=== PATIENT | male | born 1985 | race Caucasian/White ===

== ENCOUNTER 2017-01-22 16:30 | Emergency (ER) | payer MEDICAID, OTHER ==
[~2017-01-22] VITALS: Ht 188 cm; Wt 113.4 kg
[~2017-01-22 16:30] MED LIST: CYMB1CAP PO; DICL75TA PO; FLEX10TA2 PO; IBUP200T2 PO; PERC7.5T12 PO; TIZA2CAP3 PO; VICO7.5T PO; VOLT1GEL2 TD
[2017-01-22 16:31] VITALS: BP 117/66
[2017-01-22] MEDS ORDERED: LIDOCAINE 1% MDV 20ML VIAL SC ONE (17:15)
[2017-01-22] MEDS ORDERED: KEFL500C7 PO (17:59)
[2017-01-22] MEDS ORDERED: CEPHALEXIN 500 MG CAP PO ONE (18:00)
== END 2017-01-22 18:17 | disposition home or self-care (01) ==
LOC: M ED 17:32
DX: S61.210A Laceration without foreign body of right index finger without damage to nail, initial encounter (principal); W26.8XXA Contact with other sharp object(s), not elsewhere classified, initial encounter; Y92.89 Other specified places as the place of occurrence of the external cause; Y93.89 Activity, other specified; Y99.0 Civilian activity done for income or pay; F17.210 Nicotine dependence, cigarettes, uncomplicated

== ENCOUNTER 2017-03-19 11:14 | Inpatient (IN) | payer MEDICAID, OTHER, SELFPAY ==
[~2017-03-19] VITALS: Ht 188 cm; Wt 103.5 kg
[~2017-03-19 11:14] MED LIST changes: +KEFL500C17 PO
[2017-03-19 12:26] LABS: MEAN CORPUSCULAR HGB CONC 34.8 g/dl (32.0-36.5); MEAN CORPUSCULAR VOLUME 83.1 fl (80.0-96.0); RED CELL DISTRIBUTION WIDTH 13.3 % (11.5-14.5); WHITE BLOOD COUNT 13.2 K/mm3 (4.0-10.0)
[2017-03-19 12:50] LABS: ALBUMIN 4.5 GM/DL (3.2-5.2); ALBUMIN/GLOBULIN RATIO 1.61 (1.00-1.93); ALKALINE PHOSPHATASE 72 U/L (45-117); ALT/SGPT 31 U/L (12-78); ANION GAP 10 MEQ/L (8-16); AST/SGOT 21 U/L (15-37); BILIRUBIN,DIRECT 0.4 MG/DL (0.0-0.2); BILIRUBIN,TOTAL 1.9 MG/DL (0.2-1.0); BLOOD UREA NITROGEN 31 MG/DL (7-18); CALCIUM LEVEL 9.4 MG/DL (8.5-10.1); CARBON DIOXIDE LEVEL 22 MEQ/L (21-32); CHLORIDE LEVEL 107 MEQ/L (98-107); CREATININE FOR GFR 1.46 MG/DL (0.70-1.30); GLOMERULAR FILTRATION RATE > 60.0 (>60); GLUCOSE, FASTING 82 MG/DL (70-105); SODIUM LEVEL 139 MEQ/L (136-145); TOTAL PROTEIN 7.3 GM/DL (6.4-8.2)
[2017-03-19 14:44] LABS: METHADONE URINE NEGATIVE (NEGATIVE)
[2017-03-19] MEDS ORDERED: MAALOX 30 ML SUSP *UDC PO PRN (18:00)
[2017-03-19] MEDS ORDERED: MOM 30ML SUSPENSION UDC PO PRN (18:00)
[2017-03-19 20:07] VITALS: BP 124/82
[2017-03-19] MEDS ORDERED: OLANZapine ORAL DISINTEGRATING TAB 5MG PO ONE (20:30)
[2017-03-19] MEDS: traZODone 50 MG TAB PO PRN (20:59)
[2017-03-19] MEDS: NICOTINE 21MG/24HR 1 EA TRANSDERMAL TD SCH (21:00)
[2017-03-20 06:00] VITALS: BP 100/51
[2017-03-20] MEDS: NICOTINE 21MG/24HR 1 EA TRANSDERMAL TD SCH ×2 (08:47→17:54)
[2017-03-20 18:00] VITALS: BP 128/79
[2017-03-20] MEDS ORDERED: OLANZapine ORAL DISINTEGRATING TAB 5MG PO ONE (19:45)
[2017-03-20] MEDS: traZODone 50 MG TAB PO PRN (19:49)
--- NOTE | 2017-03-21 01:36 | HPE ---
DATE OF ADMISSION: 03/19/2017 HISTORY OF PRESENT ILLNESS: Please refer to psychiatric history and evaluation for further details on this admission. This examination and history is intended for medical issues, which may need treatment, followup or consult on this 31-year-old male. ALLERGIES: No known allergies. PRIMARY CARE PROVIDER: Dr. Emiliano Banks. SOCIAL HISTORY: He is single. Ethyl alcohol (EtOH) none. Smokes half a pack of cigarettes per day. Recreational drug use: Cocaine and he has also used tramadol that was prescribed to him some time ago. He has taken Xanax that he states was prescribed to him some time ago. PAST MEDICAL HISTORY: Chronic neck and back pain. PAST SURGICAL HISTORY: Negative. HOME MEDICATIONS: None. FAMILY HISTORY: Noncontributory. LABORATORY STUDIES: WBC 15.2, hemoglobin 13.2, hematocrit 43.6, platelets 238. Electrolytes are normal. BUN 31, creatinine 1.6. Total bilirubin 1.9. Direct bilirubin 0.4. Urine was positive for opiates, amphetamines, benzodiazepines, and cocaine. REVIEW OF SYSTEMS: 10-system review was done and other than chronic neck and back pain was unremarkable. PHYSICAL EXAMINATION: 31-year-old cooperative male in no acute distress. Vital signs are stable. Height 74 inches, weight 103.7 kg, body mass index (BMI) 29.4. Blood pressure 124/82, pulse 82, respirations 20, temperature 98.8. The patient is alert and oriented times three. Pupils equal and react to light. Extraocular muscles intact. Cornea and sclerae clear. Conjunctivae were normal. No facial asymmetry. Pharynx, tongue and gums pink and moist. Tongue is midline. Neck is supple without lymphadenopathy. No thyromegaly, no goiter. Chest clear to auscultation without wheeze or retraction. Heart is regular. Abdomen is benign. Bowel sounds positive. Genitourinary/rectal: Not done. Extremities show equal strength, full range of motion. No cyanosis, clubbing or edema. Peripheral pulses equal and palpable bilaterally. Skin is warm and dry. IMPRESSION/PLAN: 1. Psychiatric plan per psychiatry. 2. Chronic neck and back pain. No acute medical issues. Continue followup as outpatient with his primary care provider.
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
[2017-03-21 06:46] VITALS: BP 119/68
[2017-03-21 06:59] LABS: ALBUMIN 3.6 GM/DL (3.2-5.2); ALBUMIN/GLOBULIN RATIO 1.2 (1.00-1.93); BILIRUBIN,DIRECT 0.2 MG/DL (0.0-0.2); BILIRUBIN,TOTAL 0.8 MG/DL (0.2-1.0); TOTAL PROTEIN 6.6 GM/DL (6.4-8.2)
[2017-03-21] MEDS: NICOTINE 21MG/24HR 1 EA TRANSDERMAL TD SCH (09:12)
[2017-03-21 18:00] VITALS: BP 124/66
--- NOTE | 2017-03-21 18:19 | IPN ---
DATE: 03/21/2017 VITAL SIGNS: Temperature 97.0, pulse 58, respirations 16, blood pressure 119/68. CURRENT MEDICATIONS: - trazodone 50 mg nightly as needed HISTORY OF PRESENT ILLNESS: This is a 31-year-old white male who had supposedly texted his girlfriend claiming he was suicidal. Patient's mother reported to police that he was looking for a rope to hang himself. Patient had been using drugs. His urine screen was positive for cocaine, benzodiazepine, opiates, and amphetamine according to staff. Patient is engaged and is living with his fiance who recently broke off the engagement. He reports recently his appetite is good. He denies any sleep issues. His concentration is fine. Level of energy is good. He denies previous history of suicidality. He denies previous psychiatric treatment or hospitalizations. He has had conflict with his mother who wants him to visit his brother who is in a coma at a local [facility]. MENTAL STATUS EXAMINATION: Patient is alert, oriented, and cooperative. Patient appears anxious with some dysphoria but no major depression. He denies being suicidal. He is not homicidal. No current signs of dangerousness. Insight and judgment are fair. He is not psychotic, not hearing voices, no paranoia or thought disorder. No signs of organicity. DIAGNOSES: 1. Adjustment disorder with mixed emotional features. 2. Cocaine use disorder. 3. Opiate use disorder. 4. Sedative use disorder. PLAN: Milieu therapy. Patient does not appear to need psychotropics at this time, but will be monitored closely. Staff to obtain collateral information regarding his prior history. Patient will need referral to a chemical dependency agency.
[2017-03-21] MEDS: traZODone 50 MG TAB PO PRN (21:22)
[2017-03-21] MEDS: ACETAMINOPHEN TAB 650MG DOSE (2X325MG) PO PRN (21:23)
[2017-03-22 06:31] VITALS: BP 116/56
[2017-03-22] MEDS: NICOTINE 21MG/24HR 1 EA TRANSDERMAL TD SCH (08:55)
[2017-03-22] MEDS: hydrOXYzine 50 MG TAB PO PRN (14:47)
[2017-03-22] MEDS: NICOTINE POLACRILEX 2 MG GUM PO PRN ×4 (14:47→20:49)
--- NOTE | 2017-03-22 17:17 | IPN ---
DATE: 03/22/2017 Vital signs: Temperature 97.8, pulse 60, respirations 60, blood pressure 116/56. CURRENT MEDICATIONS: - Trazodone 50 mg at bedtime as needed HISTORY OF PRESENT ILLNESS: Patient reports that his mood is good today. He is attending the groups, he finds them helpful. He likes to socialize with the other young people on the unit. He is watching movies. His appetite is good. He slept well last noted without needed any sleepers. His concentration has been fine. He had no visitors yesterday. His fiance did not visit. He is concerned about this. She was not answering his phone calls. Later in the day after I saw the patient, the patient did have contact with his fiance. She broke off the engagement. This was very upsetting to the patient. Patient reported anxiety and dysphoria to the nursing staff but no suicidal ideation. Patient dislikes the nicotine patch, he requests the Nicorette gum, which is reasonable. Patient continues to ventilate his frustration with his mother whom he claims has had a sabotaging relationship with his fiance/girlfriend. MENTAL STATUS EXAMINATION: Patient is alert, oriented, he is cooperative. Mood and affect appeared recently good. Anxiety was minimal. He was feature oriented. He was not homicidal. No suicidal. Patient nonpsychotic, not hearing voices. No paranoia or thought disorder. Grooming and hygiene is quite good. Insight and judgment appeared fair. No signs of organicity. DIAGNOSES: 1. Adjustment disorder with mixed emotional features. 2. Cocaine use disorder. 3. Opiate use disorder. 4. Sedative use disorder. PLAN: Add Nicorette donna. Add Atarax as needed for anxiety control. Staff to reach out to family members for collateral contact. Support provided. Patient to be monitored for any signs of dangerousness. Patient to be monitored closely.
[2017-03-22 18:00] VITALS: BP 110/64
[2017-03-22] MEDS: traZODone 50 MG TAB PO PRN (20:17)
[2017-03-22] MEDS: ACETAMINOPHEN TAB 650MG DOSE (2X325MG) PO PRN (20:18)
[2017-03-23 07:00] VITALS: BP 98/60
[2017-03-23] MEDS: NICOTINE POLACRILEX 2 MG GUM PO PRN ×6 (08:32→21:00)
[2017-03-23] MEDS: hydrOXYzine 50 MG TAB PO PRN ×3 (13:26→21:51)
[2017-03-23] MEDS: ACETAMINOPHEN TAB 650MG DOSE (2X325MG) PO PRN ×2 (13:26→20:59)
[2017-03-23 18:00] VITALS: BP 124/79
[2017-03-23] MEDS: traZODone 50 MG TAB PO PRN (20:59)
[2017-03-24 06:58] VITALS: BP 129/68
[2017-03-24] MEDS: hydrOXYzine 50 MG TAB PO PRN ×4 (08:07→20:36)
[2017-03-24] MEDS: NICOTINE POLACRILEX 2 MG GUM PO PRN ×4 (08:07→20:36)
[2017-03-24] MEDS: ACETAMINOPHEN TAB 650MG DOSE (2X325MG) PO PRN ×2 (08:08→16:42)
--- NOTE | 2017-03-24 10:49 | IPN ---
DATE: 03/23/2017 VITAL SIGNS: Temperature 98.0, pulse 60, respirations 16, blood pressure 98/60. CURRENT MEDICATIONS: - trazodone 50 mg at bedtime as needed - Atarax 50 mg every 4 hours as needed - Nicorette gum 2 mg every 2 hours as needed HISTORY OF PRESENT ILLNESS: Patient reports is mood to be better today. He was upset yesterday as his fiancee broke up with him and moved out of the apartment. He realizes now that this was not a good relationship, she was not supportive to him, he plans to move back into his mother's house who has been more supportive. He had been in conflict with his mother over excessive visitation with his brother who is in a comma, however, he has worked through many of these conflicted issues with her over the phone. His grandmother has also been visiting and has been supportive. Patient is more future oriented. He is motivated to stay clean and avoid drugs. shutdown planner had contacted the fijagdishe who has confirmed her wish to break off the relationship. MENTAL STATUS EXAMINATION: Patient is alert, oriented and cooperative. Affect is brighter today. Mood is less depressed. He does appear future oriented. He is not homicidal or suicidal today. He is not psychotic. Grooming and hygiene appear good today. Insight and judgment seem much improved. DIAGNOSIS: Adjustment disorder with mixed emotional features. Cocaine use disorder. Opiate use disorder. Sedative use disorder. PLAN: Continue current psychotropics. Staff to reach out to his mother to arrange collateral contact and adequate safe discharge planning. Involve in hospital milieu.
[2017-03-24 18:00] VITALS: BP 115/57
[2017-03-24] MEDS: traZODone 50 MG TAB PO PRN (20:36)
[2017-03-25] MEDS: hydrOXYzine 50 MG TAB PO PRN ×2 (06:31→10:32)
[2017-03-25] MEDS: NICOTINE POLACRILEX 2 MG GUM PO PRN ×2 (06:32→09:25)
[2017-03-25] MEDS: ACETAMINOPHEN TAB 650MG DOSE (2X325MG) PO PRN (06:32)
[2017-03-25 07:34] VITALS: BP 127/64
[2017-03-25] MEDS ORDERED: TRAZO50TA PO (08:07)
[2017-03-25] MEDS ORDERED: HYDRO50TAB PO (08:07)
--- NOTE | 2017-03-25 22:13 | IPN ---
DATE: 03/24/2017 VITAL SIGNS: Temperature 99.1, pulse 69, respirations 18, blood pressure 129/68. CURRENT MEDICATIONS: - Atarax 50 mg every 4 hours as needed - trazodone 50 mg at bedtime as needed HISTORY OF PRESENT ILLNESS: Patient states his mother came into visit last night. She brought him street clothes, which he appreciated. He reports his mood to be much improved. He worked out his areas of conflict with his mother. He realizes now that she is a major support. He plans on moving out of his apartment and back in to live with her. His appetite is fine. He slept well last night. His concentration is good. He is attending all groups. He decided not to go back to the [facility]. He claims that she actually uses methamphetamine and is a bad influence on him. He realized now that the breakup in the relationship was for the best. He is going to attend outpatient mental health and chemical dependency treatment. His mother bought tickets for a musical group tomorrow night, which he hopes to attend with his mother and father. MENTAL STATUS EXAMINATION: Mood and affect appear much improved. Affect appears quite good. Anxiety is minimal. He is more hopeful about the future. Not voicing any homicidal or suicidal thoughts or impulses. No signs of psychosis. Memory and hygiene are, again, quite good today. Insight and judgment remain improved. DIAGNOSES: 1. Adjustment disorder with mixed emotional features. 2. Cocaine use disorder. 3. Opiate use disorder. PLAN: Discharge tomorrow to care of his family. Staff to work on discharge planning. KRISTIN
--- NOTE | 2017-03-26 11:50 | MHDS ---
DATE OF ADMISSION: 03/19/2017 DATE OF DISCHARGE: 03/25/2017 VITAL SIGNS: Temperature 98.2, pulse 72, respirations 18, blood pressure 127/64. LABORATORY: Complete blood count (CBC) and differential normal except for elevated white blood count (WBC) at 13.2. Chemistry within normal limits except for elevated creatine 1.46 and BUN 31. Toxicology positive for opiates, amphetamines, benzodiazepines and cocaine metabolites. DISCHARGE MEDICATIONS: - trazodone 50 mg at bedtime (hs) as needed - Atarax 50 mg every 4 hours as needed CHIEF COMPLAINT: The patient sent a suicidal text to his girlfriend. HISTORY OF PRESENT ILLNESS: This is a 31-year-old white male admitted from the emergency room after the police got a phone call from the patient's mother. The patient's mother was concerned that the patient was looking for a rope. According to the police report, the patient has been using drugs recently. His urine toxicology screen is positive for multiple substances. He minimizes his substance use history. He does have a history of cocaine use and alcohol use disorder and has been in treatment in the past. The patient has had some recent conflict with his [email or web address] avelina, whom he lives with. He has also had conflict with his mother, who demands that he join her visiting his brother [facility] the jail, who is in a coma. PROGRESS ON THE UNIT: The patient was seen initially by Dr. Ramos, then by myself as of March 21, 2017. The patient denies any recent history of depression. Reports his appetite has been good recently. His weight is stable. He reports sleeping well at night. He denies a previous history of suicidal behavior. He denies previous psychiatric treatment or hospitalizations. The patient continued to appear anxious on the unit. Due to his recent conflict with his fianc e and mother, as well as his significant drug use, the patient was given Atarax for control of anxiety symptoms and trazodone for mild insomnia with good affect. The patient's fianc e broke off the engagement during the hospitalization. The patient was initially upset, but then coped with this loss reasonably well. He did not become despondent or suicidal. His mother was in to visit frequently. The patient and his mother worked through their issues of conflict to his satisfaction. The patient decided that he would return home to live with his mother. The patient's mother support this, stating that he always does best when he is under her supervision. The patient states that he does like to exercise. He likes to go to the gym on an almost daily basis. The patient stopped going to the gym once he met his aleena quan, as she liked to drink and green party. He realizes now that she was a bad influence on him. He plans to return to his exercise program regimen. The patient did not require any antidepressants while on the unit. He was willing to followup with outpatient mental health and chemical dependency treatment and appeared to reach maximal hospital benefit. MENTAL STATUS EXAMINATION: At the time of discharge, mood and affect were much improved. Anxiety was minimal. No signs of depression. He was not suicidal or homicidal. Insight and judgment seemed much improved. No signs of psychosis. No hearing voices. No paranoia thought disorder. Memory function is intact. No signs of organicity. ASSESSMENT: The patient's suicidal ideation resolved quickly and the patient worked our various psychosocial issues and appeared ready for outpatient treatment. DISPOSITION/PLAN: Discharge today. Followup with outpatient mental health and chemical dependency treatment. The patient to return home to live with his mother temporarily.
== END 2017-03-25 11:20 | disposition home or self-care (01) | DRG 755 ==
LOC: M ED 11:14 → M ED INP 17:55 → M PSY 19:56
PROVIDERS: ADMIT Psychiatry & Neurology Psychiatry; ATTEND Psychiatry & Neurology Psychiatry
DX: F43.20 Adjustment disorder, unspecified (principal); R45.851 Suicidal ideations; Z79.899 Other long term (current) drug therapy; F14.10 Cocaine abuse, uncomplicated; F11.10 Opioid abuse, uncomplicated; F17.210 Nicotine dependence, cigarettes, uncomplicated; M54.2 Cervicalgia

== ENCOUNTER → 2018-11-28 | Outpatient (REF) | payer OTHER ==
[~2018-11-28] MED LIST changes: +HYDRO50TAB PO; +TIZA2CAP PO; -TIZA2CAP3 PO; +TRAZO50TA PO
[2018-11-28 19:31] LABS: INFLUENZA A AMPLIFICATION NEGATIVE (NEGATIVE); INFLUENZA B AMPLIFICATION NEGATIVE (NEGATIVE)
== END ==
LOC: M LAB REF 18:29
PROVIDERS: ATTEND Physician Assistant Medical
DX: J11.1 Influenza due to unidentified influenza virus with other respiratory manifestations (principal)

== ENCOUNTER → 2018-12-11 | Outpatient (REF) | payer OTHER ==
[2018-12-12 00:05] LABS: CHLAMYDIA DNA AMPLIFICATION NEGATIVE (NEGATIVE); GC DNA AMPLIFICATION NEGATIVE (NEGATIVE)
== END ==
LOC: M LAB REF 10:27
PROVIDERS: ATTEND Physician Assistant
DX: Z11.3 Encounter for screening for infections with a predominantly sexual mode of transmission (principal)

== ENCOUNTER → 2019-04-25 | Outpatient (REF) | payer OTHER ==
[~2019-04-25] MED LIST changes: +BUPRENORP; +GABA-843; +HYDR1TAB33 PO; -HYDRO50TAB PO; +TRAZ1TAB10 PO; -TRAZO50TA PO; +VYVA40CA3
[2019-04-25 17:26] LABS: ALBUMIN 4.1 GM/DL (3.2-5.2); ALT/SGPT 184 U/L (12-78); BASO % 0.4 % (0.0-1.0); BILIRUBIN,TOTAL 0.6 MG/DL (0.2-1.0); BLOOD UREA NITROGEN 22 MG/DL (7-18); CALCIUM LEVEL 9.1 MG/DL (8.5-10.1); CARBON DIOXIDE LEVEL 29 MEQ/L (21-32); CHLORIDE LEVEL 107 MEQ/L (98-107); CHOLESTEROL LEVEL 152 MG/DL (<200); CHOLESTEROL RISK RATIO 3.619 (<5); EOS # 0.1 10^3/uL (0.0-0.50); EOS % 1.5 % (0.0-3.0); FREE T4 1.28 NG/DL (0.76-1.46); GLOMERULAR FILTRATION RATE > 60.0 (>60); GLUCOSE, FASTING 90 MG/DL (70-100); HDL CHOLESTEROL 42 MG/DL (>40); HEMATOCRIT 46.6 % (42.0-52.0); HEMOGLOBIN 16.3 g/dl (13.5-17.5); LDL CHOLESTEROL 96 MG/DL (<100); LYMPH # 1.5 10^3/uL (1.5-4.5); LYMPH % 31.7 % (24.0-44.0); MEAN CORPUSCULAR HEMOGLOBIN 29.8 pg (27.0-33.0); MEAN CORPUSCULAR VOLUME 85.2 fl (80.0-96.0); MONO # 0.4 10^3/uL (0.0-0.8); MONO % 9.2 % (0.0-5.0); NEUTROPHILS # 2.7 10^3/uL (1.8-7.7); NEUTROPHILS % 56.8 % (36.0-66.0); NON-HDL-C 110 MG/DL; PLATELET COUNT, AUTOMATED 194 10^3/uL (150-450); POTASSIUM SERUM 4.6 MEQ/L (3.5-5.1); RED BLOOD COUNT 5.47 10^6/uL (4.30-6.10); SODIUM LEVEL 142 MEQ/L (136-145); TOTAL PROTEIN 6.9 GM/DL (6.4-8.2); TRIGLYCERIDES LEVEL 72 MG/DL (<150); WHITE BLOOD COUNT 4.8 10^3/uL (4.0-10.0)
[2019-04-25 18:03] LABS: HEMOGLOBIN A1c 5.7 %
[2019-04-28 00:07] LABS: Lyme Disease IgG Ab 18 kDa Ban Present (.); Lyme Disease IgG Ab 23 kDa Ban Absent (.); Lyme Disease IgG Ab 28 kDa Ban Absent (.); Lyme Disease IgG Ab 30 kDa Ban Absent (.); Lyme Disease IgG Ab 39 kDa Ban Absent (.); Lyme Disease IgG Ab 41 kDa Ban Absent (.); Lyme Disease IgG Ab 45 kDa Ban Absent (.); Lyme Disease IgG Ab 58 kDa Ban Absent (.); Lyme Disease IgG Ab 66 kDa Ban Absent (.); Lyme Disease IgG Ab 93 kDa Ban Absent (.); Lyme Disease IgG West Blot Int Negative (.); Lyme Disease IgG/IgM Antibodie <0.91 ISR (0.00-0.90); Lyme Disease IgM Ab 23 kDa Ban Present (.); Lyme Disease IgM Ab 39 kDa Ban Absent (.); Lyme Disease IgM Ab 41 kDa Ban Absent (.); Lyme Disease IgM Ab Quantitati 1.07 index (0.00-0.79); Lyme Disease IgM West Blot Int Negative (.)
== END ==
LOC: M LAB REF 16:44
PROVIDERS: ATTEND Family Medicine
DX: Z13.228 Encounter for screening for other metabolic disorders (principal)

== ENCOUNTER → 2019-05-04 | Outpatient (CLI) | payer OTHER ==
--- NOTE | 2019-05-04 09:23 | REP ---
Free abdomen ultrasound for upper abdominal pain: There is no cholelithiasis, gallbladder wall thickening or pericholecystic fluid. There is no intrahepatic or extrahepatic biliary duct dilatation. The common biliary duct measures 5.4 mm in diameter. The hepatic parenchyma is homogeneous and otherwise unremarkable. The visualized hepatic parenchyma is unremarkable. The spleen is mildly enlarged measuring 15.7 x 5.5 x 11 point centimeters for splenic index of 189. There are no focal splenic masses or cysts. The right kidney measures 11.2 x 5.9 x 4.2 cm. The left kidney measures 12.2 x 6.7 x 5.7 cm. The kidneys are normal size. There is a the 0.9 cm right renal Bosniak type 1 cyst. No left renal cyst. There are no solid renal masses on the right on the left. There are no renal calculi on the right on the left. There is no hydronephrosis on the right on the left. There is no abdominal aortic aneurysm. The abdominal aortic measurements: Proximal 2.3 cm. Mid to 0.4 cm. Distal 1.9 cm. There is no ascites. Impression: There is a 0.90 cm right renal Bosniak type 1 cyst. Mild splenomegaly. No splenic masses or cysts. Portions of the pancreas are obscured. Electronically Signed by Gabriel Vazquez MD 05/04/2019 09:14 A
== END ==
LOC: M RAD 07:57
PROVIDERS: ATTEND Family Medicine
DX: R10.10 Upper abdominal pain, unspecified (principal); N28.1 Cyst of kidney, acquired

== ENCOUNTER → 2019-05-29 | Outpatient (CLI) | payer OTHER ==
[~2019-05-29] MED LIST changes: -BUPRENORP; -GABA-843; -VYVA40CA3
[2019-05-29 19:59] LABS: INR 1.08; PROTHROMBIN TIME 13.7 SECONDS (11.8-14.0)
[2019-05-30 10:08] LABS: HEPATITIS B SURFACE ANTIBODY POSITIVE (POSITIVE); HEPATITIS B SURFACE ANTIGEN NEGATIVE (NEGATIVE); HIV 1&2 SCREEN CENTAUR NEGATIVE (NEGATIVE)
[2019-05-30 10:15] LABS: HEPATITIS C VIRUS ABY INDEX > 11.0 INDEX (<0.8)
[2019-06-03 10:17] LABS: HEPATITIS A IgG TOTAL Positive (Negative); HEPATITIS B CORE ANTIBODY IGG Negative (Negative); HEPATITIS C QUANTITATION 689910 IU/mL (.); HEPATITIS C VIRUS GENOTYPE 1b (.)
== END ==
LOC: M LAB 17:25
PROVIDERS: ATTEND Family Medicine
DX: Z20.5 Contact with and (suspected) exposure to viral hepatitis (principal); Z31.440 Encounter of male for testing for genetic disease carrier status for procreative management

== ENCOUNTER 2019-09-19 15:54 | Emergency (ER) | payer SELFPAY ==
[~2019-09-19] VITALS: Ht 188 cm; Wt 114.0 kg
[2019-09-19] MEDS ORDERED: BUPRENORP (16:01)
[2019-09-19] MEDS ORDERED: VYVA40CA3 (16:01)
[2019-09-19] MEDS ORDERED: GABA-843 (16:01)
--- NOTE | 2019-09-19 16:37 | REP ---
INDICATION: Headache PROCEDURE: CT head without contrast COMPARISON STUDIES: No prior similar studies FINDINGS: No acute bleed or acute large vessel territorial infarct. Ventricles, cisterns and sulci are within normal limits. No mass effect or midline shift. No abnormal fluid collections. Paranasal sinuses and mastoid air cells are clear. CONCLUSION: No acute findings. Electronically Signed by Carlos Tolentino MD 09/19/2019 04:28 P
[2019-09-19] MEDS ORDERED: KETOROLAC 30 MG/ML VIAL (J1885) IV ONE (17:45)
[2019-09-19] MEDS ORDERED: ACETAMINOPHEN 325 MG TAB PO ONE (17:45)
[2019-09-19] MEDS ORDERED: METOCLOPRAMIDE INJ 10MG/2ML VIAL (J2765) IV ONE (17:45)
[2019-09-19 17:58] LABS: APPEARANCE, URINE CLEAR (CLEAR); BACTERIA, URINE AUTO NEGATIVE (NEGATIVE); BILIRUBIN, URINE AUTO NEGATIVE (NEGATIVE); BLOOD, URINE BLOOD NEGATIVE (NEGATIVE); COLOR, URINE YELLOW (YELLOW); GLUCOSE, URINE (UA) AUTO NEGATIVE (NEGATIVE); KETONE, URINE AUTO NEGATIVE (NEGATIVE); LEUKOCYTE ESTERASE, URINE AUTO NEGATIVE (NEGATIVE); NITRITE, URINE AUTO NEGATIVE (NEGATIVE); PROTEIN, URINE AUTO NEGATIVE (NEGATIVE); RBC, URINE AUTO 1 /HPF (0-3); SPECIFIC GRAVITY URINE AUTO 1.018 (1.002-1.035); SQUAMOUS EPITHELIAL CELL UR AU 0 /HPF (0-6); UROBILINOGEN, URINE AUTO 0.2 mg/dL (0.0-2.0); WBC, URINE AUTO 0 /HPF (0-3)
[2019-09-19 18:06] LABS: BASO % 0.4 % (0.0-1.0); EOS % 0.8 % (0.0-3.0); HEMATOCRIT 46.3 % (42.0-52.0); HEMOGLOBIN 15.8 g/dl (13.5-17.5); LYMPH # 1.7 10^3/uL (1.5-5.0); MEAN CORPUSCULAR HEMOGLOBIN 29.7 pg (27.0-33.0); MEAN CORPUSCULAR HGB CONC 34.1 g/dl (32.0-36.5); MONO # 0.3 10^3/uL (0.0-0.8); MONO % 5.9 % (0.0-5.0); NEUTROPHILS # 3.1 10^3/uL (1.5-8.5); NEUTROPHILS % 59.7 % (36.0-66.0); PLATELET COUNT, AUTOMATED 185 10^3/uL (150-450); RED BLOOD COUNT 5.32 10^6/uL (4.30-6.10); WHITE BLOOD COUNT 5.1 10^3/uL (4.0-10.0)
--- NOTE | 2019-09-19 18:15 | REP ---
CHEST: Two views. There is no evidence of acute infiltrate. No pleural effusion is seen. The heart is normal in size. The mediastinal silhouette is unremarkable. The visualized osseous structures are intact. IMPRESSION: No acute pulmonary disease. Electronically Signed by Gabriel Haddad MD 09/19/2019 08:06 P
[2019-09-19 18:23] LABS: C REACTIVE PROTEIN QUANTITATIV < 0.30 MG/DL (0.00-0.30); CK-MB VALUE MASS 2.2 NG/ML (<3.6); CPK CREATINE PHOSPHOKINASE 166 U/L (39-308); MB/CK RELATIVE INDEX 1.33 (< OR =4); TROPONIN I < 0.02 NG/ML (< 0.10)
--- NOTE | 2019-09-19 18:24 | ECGEPIP ---
[facility] - ED Test Date: 2019-09-19 Pat Name: CHAZ العلي Department: Room: - Gender: Male Oil Heaterman: alexis : 1985 Requested By: MICA LOYOLA PA-C Order Number: [id number] Reading MD: Hilda Nur Measurements Intervals [place] Rate: 76 P: 62 GA: 177 QRS: 33 QRSD: 98 T: 27 QT: 375 QTc: 424 Interpretive Statements SINUS RHYTHM NO PRIOR Electronically Signed on 09-19-2019 18:24:07 EST by Hilda Nur
[2019-09-19 18:38] LABS: ERYTHROCYTE SEDIMENTATION RATE 5 mm/hr (0-15)
[2019-09-19 18:50] LABS: INFLUENZA A AMPLIFICATION NEGATIVE (NEGATIVE); INFLUENZA B AMPLIFICATION NEGATIVE (NEGATIVE)
[2019-09-19 20:09] VITALS: BP 114/74
== END 2019-09-19 20:09 | disposition home or self-care (01) ==
LOC: M ED 15:54
DX: R51 Headache (principal); Z87.820 Personal history of traumatic brain injury; Z87.09 Personal history of other diseases of the respiratory system; Z79.899 Other long term (current) drug therapy
CPT/HCPCS: 70450; 71046; 80047; 81001; 82550; 82553; 84484; 85025; 85652; 86140; 87502; 87880; 93005; 96374; 96375; 99284; J1885; J2765

== ENCOUNTER → 2019-12-27 | Outpatient (REF) | payer OTHER ==
[~2019-12-27] MED LIST changes: +BUPRENORP; +GABA-843; +VYVA40CA3
== END ==
LOC: M LAB REF 14:45
PROVIDERS: ATTEND Nurse Practitioner Adult Health
DX: F11.21 Opioid dependence, in remission (principal)

== ENCOUNTER 2020-04-08 13:55 | Emergency (ER) | payer OTHER ==
[~2020-04-08 13:55] MED LIST changes: +FAMOTIDINE INJ 20MG/2ML VIAL (S0028 PER 1) As Ordered ONE; +FAMOTIDINE INJ 20MG/2ML VIAL (S0028 PER 1) ONE; +dexameTHASONE 20MG/5ML VIAL (J1100 PER 1MG) As Ordered ONE; +dexameTHASONE 20MG/5ML VIAL (J1100 PER 1MG) ONE
== END 2020-04-08 14:40 | disposition home or self-care (01) ==
LOC: M ED 13:55
DX: R21 Rash and other nonspecific skin eruption (principal); R20.2 Paresthesia of skin; S50.862A Insect bite (nonvenomous) of left forearm, initial encounter; W57.XXXA Bitten or stung by nonvenomous insect and other nonvenomous arthropods, initial encounter; Y92.89 Other specified places as the place of occurrence of the external cause; Z91.030 Bee allergy status; Z88.8 Allergy status to other drugs, medicaments and biological substances
CPT/HCPCS: 96361; 96374; 96375; 99282; J1100

== ENCOUNTER → 2020-07-14 | Outpatient (CLI) | payer OTHER ==
[~2020-07-14] MED LIST changes: -FAMOTIDINE INJ 20MG/2ML VIAL (S0028 PER 1) As Ordered ONE; -FAMOTIDINE INJ 20MG/2ML VIAL (S0028 PER 1) ONE; -dexameTHASONE 20MG/5ML VIAL (J1100 PER 1MG) As Ordered ONE; -dexameTHASONE 20MG/5ML VIAL (J1100 PER 1MG) ONE
== END ==
LOC: M OUTALCOH 08:41
PROVIDERS: ATTEND Psychiatry & Neurology Addiction Medicine
DX: F10.10 Alcohol abuse, uncomplicated (principal)

== ENCOUNTER → 2020-08-11 | Outpatient (RCR) | payer OTHER | LOC: M OUTALCOH 07-21 16:01 | PROVIDERS: ATTEND Psychiatry & Neurology Addiction Medicine | DX: F10.20 Alcohol dependence, uncomplicated (principal); F14.10 Cocaine abuse, uncomplicated; F17.200 Nicotine dependence, unspecified, uncomplicated ==

== ENCOUNTER 2020-09-10 14:40 | Outpatient (RCR) | payer OTHER | END 2020-09-11 | LOC: M OUTALCOH 14:40 | PROVIDERS: ATTEND Psychiatry & Neurology Addiction Medicine | DX: F10.20 Alcohol dependence, uncomplicated (principal); F14.10 Cocaine abuse, uncomplicated; F17.200 Nicotine dependence, unspecified, uncomplicated ==

== ENCOUNTER → 2020-09-23 | Outpatient (CLI) | payer OTHER ==
[~2020-09-23] MED LIST changes: +GABA-282; -GABA-843
[2020-09-23 12:07] LABS: BASO % 0.4 % (0.0-1.0); EOS # 0.1 10^3/uL (0.0-0.5); EOS % 1.2 % (0.0-3.0); HEMATOCRIT 47.7 % (42.0-52.0); LYMPH # 2.1 10^3/uL (1.5-5.0); LYMPH % 29.2 % (24.0-44.0); MEAN CORPUSCULAR HEMOGLOBIN 29.1 pg (27.0-33.0); MEAN CORPUSCULAR HGB CONC 33.5 g/dl (32.0-36.5); MEAN CORPUSCULAR VOLUME 86.7 fl (80.0-96.0); MONO # 0.5 10^3/uL (0.0-0.8); MONO % 6.8 % (0.0-5.0); NEUTROPHILS # 4.5 10^3/uL (1.5-8.5); NEUTROPHILS % 61.9 % (36.0-66.0); PLATELET COUNT, AUTOMATED 227 10^3/uL (150-450); WHITE BLOOD COUNT 7.3 10^3/uL (4.0-10.0)
[2020-09-23 15:14] LABS: ALBUMIN 4.3 GM/DL (3.2-5.2); ALT/SGPT 28 U/L (12-78); BILIRUBIN,TOTAL 0.6 MG/DL (0.2-1.0); BLOOD UREA NITROGEN 20 MG/DL (7-18); CALCIUM LEVEL 8.9 MG/DL (8.5-10.1); CARBON DIOXIDE LEVEL 29 MEQ/L (21-32); CHLORIDE LEVEL 101 MEQ/L (98-107); CHOLESTEROL LEVEL 270 MG/DL (<200); CHOLESTEROL RISK RATIO 5.869 (<5); GLOMERULAR FILTRATION RATE > 60.0 (>60); GLUCOSE, FASTING 96 MG/DL (70-100); HDL CHOLESTEROL 46 MG/DL (>40); LDL CHOLESTEROL 185 MG/DL (<100); NON-HDL-C 224 MG/DL; POTASSIUM SERUM 4.4 MEQ/L (3.5-5.1); SODIUM LEVEL 136 MEQ/L (136-145); TRIGLYCERIDES LEVEL 194 MG/DL (<150)
[2020-09-23 16:02] LABS: HEMOGLOBIN A1c 4.9 %
[2020-09-24 23:07] LABS: HEPATITIS C QUANTITATION HCV Not Detected IU/mL (.)
== END ==
LOC: M LAB 10:57
PROVIDERS: ATTEND Physician Assistant
DX: R73.03 Prediabetes (principal)

== ENCOUNTER → 2020-09-25 | Outpatient (CLI) | payer OTHER | LOC: M PLALAB 09:36 | PROVIDERS: ATTEND Psychiatry & Neurology Psychiatry | DX: F10.20 Alcohol dependence, uncomplicated (principal); F14.10 Cocaine abuse, uncomplicated ==

== ENCOUNTER 2020-10-08 11:20 | Outpatient (RCR) | payer OTHER | END 2020-10-12 | LOC: M OUTALCOH 11:20 | PROVIDERS: ATTEND Psychiatry & Neurology Addiction Medicine | DX: F10.20 Alcohol dependence, uncomplicated (principal); F14.10 Cocaine abuse, uncomplicated; F17.200 Nicotine dependence, unspecified, uncomplicated ==

== ENCOUNTER 2020-11-05 09:00 | Outpatient (RCR) | payer OTHER | END 2020-11-09 | LOC: M OUTALCOH 09:00 | PROVIDERS: ATTEND Psychiatry & Neurology Psychiatry | DX: F10.20 Alcohol dependence, uncomplicated (principal); F14.10 Cocaine abuse, uncomplicated; F17.200 Nicotine dependence, unspecified, uncomplicated ==

== ENCOUNTER → 2020-12-10 | Outpatient (RCR) | payer OTHER | LOC: M OUTALCOH 11-11 13:36 | PROVIDERS: ATTEND Psychiatry & Neurology Psychiatry | DX: F10.20 Alcohol dependence, uncomplicated (principal); F14.10 Cocaine abuse, uncomplicated; F17.200 Nicotine dependence, unspecified, uncomplicated ==

== ENCOUNTER → 2020-12-10 | Outpatient (CLI) | payer OTHER | LOC: M PLALAB 09:33 | PROVIDERS: ATTEND Psychiatry & Neurology Psychiatry | DX: F10.20 Alcohol dependence, uncomplicated (principal) ==

== ENCOUNTER 2021-01-05 08:00 | Outpatient (RCR) | payer OTHER | END 2021-01-09 | LOC: M OUTALCOH 08:00 | PROVIDERS: ATTEND Psychiatry & Neurology Psychiatry | DX: F10.20 Alcohol dependence, uncomplicated (principal); F14.10 Cocaine abuse, uncomplicated; F17.200 Nicotine dependence, unspecified, uncomplicated ==

== ENCOUNTER 2021-02-03 08:00 | Outpatient (RCR) | payer OTHER | END 2021-02-09 | LOC: M OUTALCOH 08:00 | PROVIDERS: ATTEND Psychiatry & Neurology Psychiatry | DX: F10.20 Alcohol dependence, uncomplicated (principal); F14.10 Cocaine abuse, uncomplicated; F17.200 Nicotine dependence, unspecified, uncomplicated ==

== ENCOUNTER 2021-03-04 12:00 | Outpatient (RCR) | payer OTHER | END 2021-03-11 | LOC: M OUTALCOH 12:00 | PROVIDERS: ATTEND Psychiatry & Neurology Psychiatry | DX: F10.20 Alcohol dependence, uncomplicated (principal); F14.10 Cocaine abuse, uncomplicated; F17.200 Nicotine dependence, unspecified, uncomplicated ==

== ENCOUNTER 2021-03-12 11:33 | Outpatient (RCR) | payer OTHER | END 2021-04-11 | LOC: M OUTALCOH 11:33 | PROVIDERS: ATTEND Psychiatry & Neurology Psychiatry | DX: F10.20 Alcohol dependence, uncomplicated (principal); F14.10 Cocaine abuse, uncomplicated; F17.200 Nicotine dependence, unspecified, uncomplicated ==

== ENCOUNTER 2021-05-05 13:00 | Outpatient (RCR) | payer OTHER | END 2021-05-12 | LOC: M OUTALCOH 13:00 | PROVIDERS: ATTEND Psychiatry & Neurology Psychiatry | DX: F10.20 Alcohol dependence, uncomplicated (principal); F14.10 Cocaine abuse, uncomplicated; F17.200 Nicotine dependence, unspecified, uncomplicated ==

== ENCOUNTER → 2022-01-20 | Outpatient (CLI) | payer OTHER ==
[2022-01-20 13:55] LABS: HEMATOCRIT 47.3 % (42.0-52.0); HEMOGLOBIN 15.9 g/dl (13.5-17.5); MEAN CORPUSCULAR HGB CONC 33.6 g/dl (32.0-36.5); MEAN CORPUSCULAR VOLUME 83.3 fl (80.0-96.0); PLATELET COUNT, AUTOMATED 275 10^3/uL (150-450); RED BLOOD COUNT 5.68 10^6/uL (4.30-6.10); WHITE BLOOD COUNT 6.5 10^3/uL (4.0-10.0)
[2022-01-20 14:07] LABS: ALT/SGPT 15 U/L (12-78); BILIRUBIN,TOTAL 0.4 MG/DL (0.2-1.0); BLOOD UREA NITROGEN 18 MG/DL (7-18); CALCIUM LEVEL 9.7 MG/DL (8.5-10.1); CARBON DIOXIDE LEVEL 27 MEQ/L (21-32); CHLORIDE LEVEL 110 MEQ/L (98-107); CHOLESTEROL LEVEL 219 MG/DL (<200); CHOLESTEROL RISK RATIO 5.918 (<5); CREATININE FOR GFR 1.28 MG/DL (0.70-1.30); GLOMERULAR FILTRATION RATE > 60.0 (>60); GLUCOSE, FASTING 100 MG/DL (70-100); HDL CHOLESTEROL 37 MG/DL (>40); LDL CHOLESTEROL 156 MG/DL (<100); NON-HDL-C 182 MG/DL; POTASSIUM SERUM 4.7 MEQ/L (3.5-5.1); SODIUM LEVEL 142 MEQ/L (136-145); TOTAL PROTEIN 6.9 GM/DL (6.4-8.2); TRIGLYCERIDES LEVEL 131 MG/DL (<150)
[2022-01-20 14:12] LABS: HEPATITIS B SURFACE ANTIBODY POSITIVE (POSITIVE); TOTAL 25(OH) VITAMIN D 18.3 NG/ML (30.0-100.0)
[2022-01-20 14:23] LABS: HEPATITIS B SURFACE ANTIGEN NEGATIVE (NEGATIVE)
[2022-01-20 14:50] LABS: HEPATITIS B CORE ANTIBODY IGM NEGATIVE (NEGATIVE)
[2022-01-20 14:57] LABS: HEPATITIS C VIRUS ABY INDEX > 11.0 INDEX (<0.8)
[2022-01-22 02:08] LABS: HEPATITIS A IgG TOTAL Positive (Negative); HEPATITIS C QUANTITATION HCV Not Detected IU/mL (.); HIV-1 RNA PCR QUANT 1 LC162545 <20 copies/mL (.)
== END ==
LOC: M PLALAB 09:25
PROVIDERS: ATTEND Family Medicine
DX: Z13.6 Encounter for screening for cardiovascular disorders (principal); B19.20 Unspecified viral hepatitis C without hepatic coma

== ENCOUNTER → 2022-02-05 | Outpatient (REF) | payer OTHER | LOC: M LAB REF 19:02 | PROVIDERS: ATTEND Physician Assistant | DX: R50.9 Fever, unspecified (principal) ==

== ENCOUNTER 2023-10-24 13:08 | Inpatient (IN) | payer OTHER ==
[~2023-10-24] VITALS: Ht 188 cm; Wt 110.1 kg
[2023-10-24] MEDS: DERMABOND TOPICAL SKIN ADHESIVE TOP ONE (15:13)
[2023-10-24 15:37] LABS: HEMATOCRIT 37.3 % (42.0-52.0); HEMOGLOBIN 12.6 g/dl (13.5-17.5); MEAN CORPUSCULAR HEMOGLOBIN 28.1 pg (27.0-33.0); MEAN CORPUSCULAR HGB CONC 33.8 g/dl (32.0-36.5); MEAN CORPUSCULAR VOLUME 83.1 fl (80.0-96.0); PLATELET COUNT, AUTOMATED 239 10^3/uL (150-450); RED BLOOD COUNT 4.49 10^6/uL (4.30-6.10); WHITE BLOOD COUNT 7.8 10^3/uL (4.0-10.0)
[2023-10-24 15:38] LABS: AMPHETAMINES LEVEL URINE NEGATIVE (NEGATIVE); BARBITURATES URINE NEGATIVE (NEGATIVE); CANNABINOIDS URINE NEGATIVE (NEGATIVE); METHADONE URINE NEGATIVE (NEGATIVE); PHENCYCLIDINE URINE NEGATIVE (NEGATIVE)
[2023-10-24 15:40] LABS: BENZODIAZEPINES URINE POSITIVE (NEGATIVE); COCAINE METABOLITE URINE POSITIVE (NEGATIVE); OPIATES URINE POSITIVE (NEGATIVE)
[2023-10-24 15:56] LABS: ETHYL ALCOHOL (ETHANOL) < 0.003 % (0.000-0.010)
[2023-10-24 15:58] LABS: ALBUMIN 4.1 G/DL (3.2-5.2); ALKALINE PHOSPHATASE 74 U/L (46-116); ALT/SGPT 22 U/L (7.0-40); AST/SGOT 19 U/L (<34); BILIRUBIN,DIRECT 0.3 MG/DL (<0.4); BILIRUBIN,TOTAL 0.8 MG/DL (0.3-1.2); BLOOD UREA NITROGEN 23 MG/DL (9-23); CALCIUM LEVEL 9.2 MG/DL (8.5-10.1); CARBON DIOXIDE LEVEL 24 MMOL/L (20-31); CHLORIDE LEVEL 107 MMOL/L (98-107); CREATININE FOR GFR 1.18 MG/DL (0.70-1.30); GLOMERULAR FILTRATION RATE > 60.0 (>60); GLUCOSE, FASTING 91 MG/DL (60-100); POTASSIUM SERUM 4.2 MMOL/L (3.5-5.1); SALICYLATE LEVEL < 3.0 MG/DL (<30); SODIUM LEVEL 136 MMOL/L (136-145)
[2023-10-24] MEDS ORDERED: MAALOX 30 ML SUSP *UDC PO PRN (17:20)
[2023-10-24] MEDS ORDERED: MOM 30ML SUSPENSION UDC PO PRN (17:20)
[2023-10-24] MEDS: ONDANSETRON 4MG ORAL DISINTEGRATING TAB SL STA (18:22)
[2023-10-24 20:40] VITALS: BP 120/75
[2023-10-24] MEDS: LORazepam 2 MG TAB PO PRN (20:52)
[2023-10-24] MEDS: THIAMINE 100 MG TAB PO SCH (20:52)
[2023-10-24] MEDS ORDERED: LAMI25TA PO (21:10)
[2023-10-24] MEDS ORDERED: NEUR300C PO (21:10)
[2023-10-24] MEDS ORDERED: SUBO8MIS SL (21:10)
[2023-10-24] MEDS ORDERED: PATIENT COMMENT (21:12)
[2023-10-24] MEDS ORDERED: HOME MED LIST COMPLETE! XX SCH (21:15)
[2023-10-24 21:59] VITALS: BP 112/59
[2023-10-25] VITALS (9 sets, daily range): BP systolic 100–139; BP diastolic 53–86; TEMP 98.2–99; O2SAT 97–98
[2023-10-25] MEDS ORDERED: LOPERAMIDE 2 MG CAPLET PO PRN (09:00)
[2023-10-25] MEDS ORDERED: LORazepam 2 MG/ML 1ML VIAL IV PRN (09:10)
[2023-10-25] MEDS: ACETAMINOPHEN TAB 650MG DOSE (2X325MG) PO PRN (09:20)
[2023-10-25] MEDS: MULTIVITAMINS/MINERALS THERAP 1 TAB PO SCH (09:21)
[2023-10-25] MEDS: ONDANSETRON 4MG TAB PO PRN (09:21)
[2023-10-25] MEDS: FOLIC ACID 1MG TAB PO SCH (09:21)
[2023-10-25] MEDS: BACLOFEN 5MG PER 1/2 TABLET PO PRN (12:43)
[2023-10-25] MEDS: LORazepam 1 MG TAB PO PRN (12:43)
[2023-10-25] MEDS: diphenhydrAMINE 25MG CAP PO PRN (17:06)
[2023-10-25] MEDS: traZODone 50 MG TAB PO PRN (21:07)
[2023-10-25] MEDS: LORazepam 2 MG TAB PO PRN (22:05)
[2023-10-26] VITALS (11 sets, daily range): BP systolic 110–137; BP diastolic 68–87; TEMP 98.5–99.5; O2SAT 98–100
[2023-10-26] MEDS: BUPRENORPHINE/NALOXONE 2-0.5MG SUBLINGUAL TABLET(SUBOXONE) SL SCH (12:02)
[2023-10-26] MEDS: BUPRENORPHINE/NALOXONE 2-0.5MG SUBLINGUAL TABLET(SUBOXONE) SL ONE (15:01)
[2023-10-26] MEDS: NICOTINE 21MG/24HR 1 EA TRANSDERMAL TD ONE (20:35)
[2023-10-27 06:42] VITALS: BP 119/79; TEMP 98.4; O2SAT 95
[2023-10-27 08:02] VITALS: BP 124/74
[2023-10-27] MEDS: BUPRENORPHINE/NALOXONE 8-2MG SUBLINGUAL TABLET(SUBOXONE) SL SCH (08:29)
[2023-10-27] MEDS: BUPRENORPHINE/NALOXONE 8-2MG SUBLINGUAL TABLET(SUBOXONE) SL ONE (11:16)
[2023-10-27] MEDS: IBUPROFEN 400MG TAB PO PRN (11:16)
[2023-10-27 16:10] VITALS: BP 143/85
[2023-10-27] MEDS: NICOTINE 21MG/24HR 1 EA TRANSDERMAL TD SCH (17:17)
[2023-10-27 17:58] VITALS: BP 143/85; TEMP 98.1; O2SAT 96
[2023-10-27 21:55] VITALS: BP 113/79
[2023-10-27] MEDS: cloNIDine 0.2 MG TAB PO ONE (21:55)
[2023-10-28 06:21] VITALS: BP 128/78; TEMP 98.9; O2SAT 98
[2023-10-28] MEDS: BUPRENORPHINE/NALOXONE 8-2MG SUBLINGUAL TABLET(SUBOXONE) SL SCH (08:04)
[2023-10-28] MEDS: NICOTINE POLACRILEX 2 MG GUM PO PRN (11:14)
[2023-10-28] MEDS: GABAPENTIN 300 MG CAP PO PRN (15:00)
[2023-10-28 16:23] VITALS: BP 123/77; TEMP 98.5; O2SAT 100
[2023-10-29 06:46] VITALS: BP 117/82; TEMP 98.3; O2SAT 97
[2023-10-29] MEDS: lamoTRIgine 25MG TAB PO SCH (08:23)
[2023-10-29 16:16] VITALS: BP 124/73; TEMP 98.4; O2SAT 100
[2023-10-30 06:20] VITALS: BP 123/85; TEMP 96.1; O2SAT 95
[2023-10-30 16:06] VITALS: BP 124/83; TEMP 97.8; O2SAT 100
[2023-10-31 05:29] VITALS: BP 127/70; TEMP 98.8; O2SAT 99
[2023-10-31] MEDS ORDERED: NICO2GUM PO (10:29)
== END 2023-10-31 12:30 | disposition home or self-care (01) | DRG 754 ==
LOC: EDBD 13:08 → M ED 13:08 → M ED INP 17:29 → M PSY 20:32
PROVIDERS: ADMIT Student in an Organized Health Care Education/Training Program; ATTEND Student in an Organized Health Care Education/Training Program
DX: F32.A Depression, unspecified (principal); F13.90 Sedative, hypnotic, or anxiolytic use, unspecified, uncomplicated; F14.90 Cocaine use, unspecified, uncomplicated; R45.851 Suicidal ideations; F11.93 Opioid use, unspecified with withdrawal; Z63.0 Problems in relationship with spouse or partner; M54.9 Dorsalgia, unspecified; G89.29 Other chronic pain; F17.210 Nicotine dependence, cigarettes, uncomplicated; D64.9 Anemia, unspecified; S00.93XA Contusion of unspecified part of head, initial encounter; W22.8XXA Striking against or struck by other objects, initial encounter; Y92.009 Unspecified place in unspecified non-institutional (private) residence as the place of occurrence of the external cause; Z79.899 Other long term (current) drug therapy; Z20.822 Contact with and (suspected) exposure to COVID-19

== ENCOUNTER 2024-05-27 21:22 | Emergency (ER) | payer OTHER ==
[~2024-05-27] VITALS: Ht 188 cm; Wt 98.8 kg
[2024-05-27 21:22] VITALS: BP 106/73; TEMP 97.3; O2SAT 96
[~2024-05-27 21:22] MED LIST changes: +LAMI25TA PO; +NEUR300C PO; +NICO2GUM PO; +PATIENT COMMENT; +SUBO8MIS SL
== END 2024-05-28 00:15 | disposition left against medical advice (07) ==
LOC: M ED 21:22
DX: Z53.21 Procedure and treatment not carried out due to patient leaving prior to being seen by health care provider (principal)

== ENCOUNTER → 2024-05-28 | Outpatient (CLI) | payer OTHER ==
[2024-05-28 19:04] LABS: BASO # 0.1 10^3/uL (0.0-0.2); BASO % 0.6 % (0.0-1.0); EOS # 0.2 10^3/uL (0.0-0.5); HEMATOCRIT 42.2 % (42.0-52.0); HEMOGLOBIN 13.7 g/dl (13.5-17.5); LYMPH % 22.8 % (24.0-44.0); MEAN CORPUSCULAR HEMOGLOBIN 27.9 pg (27.0-33.0); MEAN CORPUSCULAR HGB CONC 32.5 g/dl (32.0-36.5); MEAN CORPUSCULAR VOLUME 85.9 fl (80.0-96.0); MONO # 0.6 10^3/uL (0.0-0.8); MONO % 6.6 % (2.0-8.0); NEUTROPHILS # 5.9 10^3/uL (1.5-8.5); NEUTROPHILS % 67.7 % (36.0-66.0); PLATELET COUNT, AUTOMATED 317 10^3/uL (150-450); RED BLOOD COUNT 4.91 10^6/uL (4.30-6.10); WHITE BLOOD COUNT 8.7 10^3/uL (4.0-10.0)
[2024-05-28 19:34] LABS: BLOOD UREA NITROGEN 15 MG/DL (9-23); CALCIUM LEVEL 9.2 MG/DL (8.5-10.1); CARBON DIOXIDE LEVEL 29 MMOL/L (20-31); CHLORIDE LEVEL 104 MMOL/L (98-107); CREATININE FOR GFR 0.85 MG/DL (0.70-1.30); GLOMERULAR FILTRATION RATE > 60.0 (>60); GLUCOSE, FASTING 81 MG/DL (60-100); POTASSIUM SERUM 4.2 MMOL/L (3.5-5.1); SODIUM LEVEL 139 MMOL/L (136-145)
[2024-05-28 19:51] LABS: MONO SCRN NEGATIVE (NEGATIVE)
[2024-05-28 20:06] LABS: HIV 1&2 SCREEN NEGATIVE (NEGATIVE)
[2024-05-28 20:17] LABS: HEPATITIS C VIRUS ABY INDEX > 11.00 INDEX (<0.8)
== END ==
LOC: M WUC 15:03
PROVIDERS: ATTEND Physician Assistant
DX: Z86.19 Personal history of other infectious and parasitic diseases (principal); Z11.4 Encounter for screening for human immunodeficiency virus [HIV]; R59.1 Generalized enlarged lymph nodes

== ENCOUNTER → 2024-07-31 | Outpatient (CLI) | payer OTHER ==
[~2024-07-31] MED LIST changes: +GABA-1172; -GABA-282
[2024-07-31 17:32] LABS: HEMOGLOBIN 12.4 g/dl (13.5-17.5); MEAN CORPUSCULAR HEMOGLOBIN 28.1 pg (27.0-33.0); MEAN CORPUSCULAR HGB CONC 32.6 g/dl (32.0-36.5); MEAN CORPUSCULAR VOLUME 86.2 fl (80.0-96.0); PLATELET COUNT, AUTOMATED 218 10^3/uL (150-450); RED BLOOD COUNT 4.41 10^6/uL (4.30-6.10)
[2024-07-31 18:04] LABS: ALBUMIN 3.5 G/DL (3.2-5.2); ALKALINE PHOSPHATASE 84 U/L (40-129); ALT/SGPT 274 U/L (7.0-40); AST/SGOT 114 U/L (<34); BILIRUBIN,TOTAL 0.4 MG/DL (0.3-1.2); BLOOD UREA NITROGEN 18 MG/DL (9-23); CARBON DIOXIDE LEVEL 30 MMOL/L (20-31); CHLORIDE LEVEL 104 MMOL/L (98-107); CREATININE FOR GFR 0.89 MG/DL (0.70-1.30); GLOMERULAR FILTRATION RATE > 60.0 (>60); GLUCOSE, FASTING 88 MG/DL (60-100); POTASSIUM SERUM 4.1 MMOL/L (3.5-5.1); SODIUM LEVEL 139 MMOL/L (136-145); TOTAL PROTEIN 6.3 G/DL (5.7-8.2)
[2024-07-31 18:18] LABS: HEPATITIS B SURFACE ANTIGEN NEGATIVE (NEGATIVE)
[2024-07-31 18:23] LABS: HEPATITIS B SURFACE ANTIBODY POSITIVE (POSITIVE)
[2024-07-31 18:42] LABS: HEPATITIS C VIRUS ABY INDEX > 11.00 INDEX (<0.8)
[2024-08-02 22:53] LABS: HCV RNA QUANTITATION 4190000 IU/mL (NOT DETECTED); HCV RNA log10 6.62 Log IU/mL (NOT DETECTED)
[2024-08-03 11:02] LABS: HEPATITIS A IgG TOTAL REACTIVE (NON-REACTIVE); HEPATITIS B CORE ANTIBODY IGG NON-REACTIVE (NON-REACTIVE)
== END ==
LOC: M WUC 14:02
PROVIDERS: ATTEND Physician Assistant
DX: B19.20 Unspecified viral hepatitis C without hepatic coma (principal)

== ENCOUNTER 2024-10-13 18:39 | Inpatient (IN) | payer OTHER ==
[~2024-10-13] VITALS: Ht 188 cm; Wt 105.6 kg
[2024-10-13] MEDS ORDERED: BACTDSTA PO (19:00)
[2024-10-13] MEDS ORDERED: SOFO1TAB PO (19:00)
[2024-10-13 20:21] LABS: BASO % 0.2 % (0.0-1.0); EOS % 0.2 % (0.0-3.0); HEMATOCRIT 41.2 % (42.0-52.0); HEMOGLOBIN 13.9 g/dl (13.5-17.5); LYMPH # 1.1 10^3/uL (1.5-5.0); LYMPH % 8.9 % (24.0-44.0); MEAN CORPUSCULAR HEMOGLOBIN 28.1 pg (27.0-33.0); MEAN CORPUSCULAR HGB CONC 33.7 g/dl (32.0-36.5); MEAN CORPUSCULAR VOLUME 83.4 fl (80.0-96.0); MONO # 1.1 10^3/uL (0.0-0.8); MONO % 8.3 % (2.0-8.0); NEUTROPHILS # 10.3 10^3/uL (1.5-8.5); NEUTROPHILS % 81.9 % (36.0-66.0); PLATELET COUNT, AUTOMATED 306 10^3/uL (150-450); RED BLOOD COUNT 4.94 10^6/uL (4.30-6.10); WHITE BLOOD COUNT 12.6 10^3/uL (4.0-10.0)
[2024-10-13 20:48] LABS: C REACTIVE PROTEIN QUANTITATIV 13.89 MG/DL (<1.0)
[2024-10-13 21:02] LABS: ALBUMIN 3.2 G/DL (3.2-5.2); ALKALINE PHOSPHATASE 56 U/L (40-129); ALT/SGPT 149 U/L (7.0-40); AST/SGOT 156 U/L (<34); BILIRUBIN,DIRECT 0.3 MG/DL (<0.4); BILIRUBIN,TOTAL 0.9 MG/DL (0.3-1.2); BLOOD UREA NITROGEN 15 MG/DL (9-23); CALCIUM LEVEL 8.5 MG/DL (8.5-10.1); CARBON DIOXIDE LEVEL 25 MMOL/L (20-31); CHLORIDE LEVEL 103 MMOL/L (98-107); CREATININE FOR GFR 1.01 MG/DL (0.70-1.30); GLOMERULAR FILTRATION RATE > 60.0 (>60); GLUCOSE, FASTING 117 MG/DL (60-100); POTASSIUM SERUM 5.9 MMOL/L (3.5-5.1); SODIUM LEVEL 135 MMOL/L (136-145); TOTAL PROTEIN 7.2 G/DL (5.7-8.2)
[2024-10-13] MEDS: KETOROLAC 30 MG/ML 1ML VIAL IV ONE (21:18)
[2024-10-13] MEDS ORDERED: ISOVUE-370 76% 100ML VIAL As Ordered ONE (21:19)
[2024-10-13 21:22] LABS: ERYTHROCYTE SEDIMENTATION RATE 55 mm/hr (0-15)
[2024-10-13] MEDS: cefTRIAXone SOD 2 GM in DEXTROSE 5% (D5W) ADV/MINI-BAG 50 ML IV ONE (21:31)
[2024-10-13 22:13] LABS: BLOOD UREA NITROGEN 14 MG/DL (9-23); CALCIUM LEVEL 8.4 MG/DL (8.5-10.1); CARBON DIOXIDE LEVEL 27 MMOL/L (20-31); CHLORIDE LEVEL 101 MMOL/L (98-107); CREATININE FOR GFR 1.06 MG/DL (0.70-1.30); GLOMERULAR FILTRATION RATE > 60.0 (>60); GLUCOSE, FASTING 110 MG/DL (60-100); POTASSIUM SERUM 4.2 MMOL/L (3.5-5.1); SODIUM LEVEL 137 MMOL/L (136-145)
[2024-10-14] MEDS: VANCOMYCIN HCL 2,000 MG, VIAL MATE ADAPTER 1 EACH in NS 500 ML IV ONE (00:05)
[2024-10-14] MEDS ORDERED: HEPARIN SOD (PORCINE) 5000UNITS/ML 1ML VIAL/SYRINGE IV PRN (00:05)
[2024-10-14] MEDS ORDERED: ACET-897 PO (00:15)
[2024-10-14] MEDS ORDERED: HOME MED LIST COMPLETE! XX SCH (00:20)
[2024-10-14] MEDS: HEPARIN DRIP 25,000 UNITS in IV 1 EA IV SCH (00:46)
[2024-10-14] MEDS: HEPARIN SOD (PORCINE) 5000UNITS/ML 1ML VIAL/SYRINGE IV ONE (00:47)
[2024-10-14] MEDS: CEFEPIME HCL 2 GM in D5W 50 ML IV SCH (05:02)
[2024-10-14] MEDS: KETOROLAC 30 MG/ML 1ML VIAL IV PRN (05:02)
[2024-10-14 06:19] LABS: HEMATOCRIT 37.1 % (42.0-52.0); HEMOGLOBIN 12.4 g/dl (13.5-17.5); MEAN CORPUSCULAR HEMOGLOBIN 28.2 pg (27.0-33.0); MEAN CORPUSCULAR HGB CONC 33.4 g/dl (32.0-36.5); MEAN CORPUSCULAR VOLUME 84.3 fl (80.0-96.0); PLATELET COUNT, AUTOMATED 279 10^3/uL (150-450); WHITE BLOOD COUNT 12.1 10^3/uL (4.0-10.0)
[2024-10-14 06:38] LABS: BLOOD UREA NITROGEN 16 MG/DL (9-23); CALCIUM LEVEL 8.1 MG/DL (8.5-10.1); CARBON DIOXIDE LEVEL 26 MMOL/L (20-31); CHLORIDE LEVEL 105 MMOL/L (98-107); CREATININE FOR GFR 1.02 MG/DL (0.70-1.30); GLOMERULAR FILTRATION RATE > 60.0 (>60); GLUCOSE, FASTING 109 MG/DL (60-100); POTASSIUM SERUM 4.1 MMOL/L (3.5-5.1); SODIUM LEVEL 139 MMOL/L (136-145)
[2024-10-14] MEDS: VANCOMYCIN HCL 1,000 MG, VIAL MATE ADAPTER 1 EACH in NS 250 ML IV SCH (08:09)
[2024-10-14] MEDS ORDERED: PROHANCE 279.3MG/ML 15ML VIAL As Ordered ONE (09:19)
[2024-10-14] MEDS ORDERED: PROHANCE 279.3MG/ML 5ML VIAL As Ordered ONE (09:19)
[2024-10-14 12:30] VITALS: BP 110/63; TEMP 97.9; O2SAT 95
[2024-10-14] MEDS ORDERED: dexmedeTOMIDine (4MCG/ML)200MCG/50ML BTL (PRECEDEX) As Ordered ONE (16:30)
[2024-10-14] MEDS ORDERED: LIDOCAINE 2% 100MG/5ML SDV (FOR ANES.) As Ordered ONE (16:30)
[2024-10-14] MEDS ORDERED: propofoL 200 MG/20 ML VIAL As Ordered ONE (16:30)
[2024-10-14] MEDS ORDERED: ONDANSETRON 4MG 2ML VIAL As Ordered ONE (16:31)
[2024-10-14] MEDS ORDERED: KETOROLAC 60MG 2ML VIAL As Ordered ONE (16:31)
[2024-10-14] MEDS ORDERED: GLYCOPYRROLATE INJ 0.2 MG/ML 2 ML VIAL As Ordered ONE (16:32)
[2024-10-14] MEDS ORDERED: MIDAZOLAM INJ 2MG/2ML VIAL As Ordered ONE (16:32)
[2024-10-14] MEDS ORDERED: KETAMINE HCL 200MG/20ML VIAL As Ordered ONE (16:40)
[2024-10-14] MEDS ORDERED: fentaNYL 100 MCG/2 ML INJECTION IV PRN (20:00)
[2024-10-14] MEDS: MIDAZOLAM INJ 2MG/2ML VIAL IV PRN (20:33)
[2024-10-14] MEDS: dexAMETHasone 10MG/1ML VIAL PRES.FREE PN ONE (20:35)
[2024-10-14] MEDS: ROPIvacaine 0.5% 30ML VIAL PN ONE (20:35)
[2024-10-14] MEDS ORDERED: HEPARIN SOD (PORCINE) 5000UNITS/ML 1ML VIAL/SYRINGE SQ SCH (21:00)
[2024-10-14] MEDS: TRANEXAMIC ACID 100 MG/ML 10ML VIAL As Ordered ONE (21:22)
[2024-10-14] MEDS: LIDOCAINE W/EPINEPHRINE 1% 20ML VIAL As Ordered ONE (21:22)
[2024-10-14] MEDS ORDERED: oxyCODONE 5MG TAB PO PRN (21:55)
[2024-10-14] MEDS ORDERED: ONDANSETRON 4MG 2ML VIAL IV PRN (21:55)
[2024-10-14] MEDS ORDERED: HYDROMORPHONE HCL 0.5 MG/ 0.5 ML SYRINGE IV PRN (21:55)
[2024-10-14 22:30] VITALS: BP 107/60; TEMP 98; O2SAT 95
[2024-10-14] MEDS: LR 1,000 ML IV SCH (23:16)
[2024-10-15 04:00] VITALS: BP 109/59; TEMP 97.3; O2SAT 96
[2024-10-15 07:21] LABS: HEMATOCRIT 36.1 % (42.0-52.0); HEMOGLOBIN 12.2 g/dl (13.5-17.5); MEAN CORPUSCULAR HEMOGLOBIN 28.4 pg (27.0-33.0); MEAN CORPUSCULAR HGB CONC 33.8 g/dl (32.0-36.5); MEAN CORPUSCULAR VOLUME 84.1 fl (80.0-96.0); PLATELET COUNT, AUTOMATED 292 10^3/uL (150-450); RED BLOOD COUNT 4.29 10^6/uL (4.30-6.10); WHITE BLOOD COUNT 10.9 10^3/uL (4.0-10.0)
[2024-10-15 08:07] LABS: BLOOD UREA NITROGEN 18 MG/DL (9-23); C REACTIVE PROTEIN QUANTITATIV 12.88 MG/DL (<1.0); CALCIUM LEVEL 8.3 MG/DL (8.5-10.1); CARBON DIOXIDE LEVEL 24 MMOL/L (20-31); CHLORIDE LEVEL 106 MMOL/L (98-107); CREATININE FOR GFR 0.78 MG/DL (0.70-1.30); GLOMERULAR FILTRATION RATE > 60.0 (>60); GLUCOSE, FASTING 209 MG/DL (60-100); POTASSIUM SERUM 4.5 MMOL/L (3.5-5.1); SODIUM LEVEL 138 MMOL/L (136-145)
[2024-10-15] MEDS: VANCOMYCIN HCL 2,000 MG, VIAL MATE ADAPTER 1 EACH in NS 500 ML IV ONE (08:53)
[2024-10-15 10:19] LABS: ANTI-STREPTOLYSIN O QUANT 26.6 IU/ML (<195)
[2024-10-15] MEDS: ENOXAPARIN 100MG/1ML SYRINGE (J1650 PER 10MG) SC SCH (11:52)
[2024-10-15 12:20] VITALS: BP 100/58; TEMP 97.7; O2SAT 97
[2024-10-15] MEDS ORDERED: VANCOMYCIN HCL 1,000 MG, VIAL MATE ADAPTER 1 EACH in NS 250 ML IV SCH (14:00)
[2024-10-15] MEDS: GABAPENTIN 300 MG CAP PO PRN (14:34)
[2024-10-15] MEDS: lamoTRIgine 25MG TAB PO SCH (14:34)
[2024-10-15] MEDS: ACETAMINOPHEN 325 MG TAB PO PRN (16:19)
[2024-10-15] MEDS: CEFEPIME HCL 2 GM in DEXTROSE 5% (D5W) ADV/MINI-BAG 50 ML IV SCH (18:03)
[2024-10-15 20:54] VITALS: BP 123/78; TEMP 98.3; O2SAT 97
[2024-10-15] MEDS: VANCOMYCIN HCL 1,500 MG, VIAL MATE ADAPTER 1 EACH in NS 500 ML IV SCH (21:04)
[2024-10-16] MEDS: KETOROLAC 30 MG/ML 1ML VIAL IV ONE (04:11)
[2024-10-16 04:13] VITALS: BP 105/57; TEMP 97.8; O2SAT 96
[2024-10-16] MEDS: METHOCARBAMOL 1,000 MG/10 ML VIAL IV ONE (05:03)
[2024-10-16 08:50] LABS: HEMATOCRIT 34.2 % (42.0-52.0); HEMOGLOBIN 11.2 g/dl (13.5-17.5); MEAN CORPUSCULAR HEMOGLOBIN 27.9 pg (27.0-33.0); MEAN CORPUSCULAR HGB CONC 32.7 g/dl (32.0-36.5); MEAN CORPUSCULAR VOLUME 85.3 fl (80.0-96.0); PLATELET COUNT, AUTOMATED 302 10^3/uL (150-450); RED BLOOD COUNT 4.01 10^6/uL (4.30-6.10); WHITE BLOOD COUNT 8.9 10^3/uL (4.0-10.0)
[2024-10-16 09:21] LABS: C REACTIVE PROTEIN QUANTITATIV 5.03 MG/DL (<1.0)
[2024-10-16 09:22] LABS: BLOOD UREA NITROGEN 23 MG/DL (9-23); CALCIUM LEVEL 8.1 MG/DL (8.5-10.1); CARBON DIOXIDE LEVEL 27 MMOL/L (20-31); CHLORIDE LEVEL 107 MMOL/L (98-107); GLOMERULAR FILTRATION RATE > 60.0 (>60); GLUCOSE, FASTING 93 MG/DL (60-100); POTASSIUM SERUM 4.3 MMOL/L (3.5-5.1); SODIUM LEVEL 142 MMOL/L (136-145)
[2024-10-16] MEDS: VANCOMYCIN HCL 1,000 MG, VIAL MATE ADAPTER 1 EACH in NS 250 ML IV SCH (10:36)
[2024-10-16 12:04] VITALS: BP 107/54; TEMP 97.3; O2SAT 98
[2024-10-16 20:00] VITALS: BP 104/55; TEMP 97.1; O2SAT 99
[2024-10-16] MEDS: methocarbamoL 750 MG TAB PO PRN (21:42)
[2024-10-17] VITALS: BP 108/61; TEMP 97.8; O2SAT 97
[2024-10-17] MEDS: KETOROLAC 30 MG/ML 1ML VIAL IV PRN (00:08)
[2024-10-17 04:00] VITALS: BP 102/62; TEMP 97.6; O2SAT 97
[2024-10-17 09:56] LABS: BASO % 0.9 % (0.0-1.0); EOS # 0.1 10^3/uL (0.0-0.5); EOS % 1.3 % (0.0-3.0); HEMATOCRIT 35.7 % (42.0-52.0); HEMOGLOBIN 11.8 g/dl (13.5-17.5); LYMPH # 1.6 10^3/uL (1.5-5.0); MEAN CORPUSCULAR HEMOGLOBIN 28.3 pg (27.0-33.0); MEAN CORPUSCULAR HGB CONC 33.1 g/dl (32.0-36.5); MEAN CORPUSCULAR VOLUME 85.6 fl (80.0-96.0); MONO # 0.3 10^3/uL (0.0-0.8); MONO % 7.6 % (2.0-8.0); NEUTROPHILS # 2.3 10^3/uL (1.5-8.5); NEUTROPHILS % 52.4 % (36.0-66.0); PLATELET COUNT, AUTOMATED 326 10^3/uL (150-450); RED BLOOD COUNT 4.17 10^6/uL (4.30-6.10); WHITE BLOOD COUNT 4.5 10^3/uL (4.0-10.0)
[2024-10-17 10:01] LABS: ERYTHROCYTE SEDIMENTATION RATE 22 mm/hr (0-15)
[2024-10-17 10:29] LABS: C REACTIVE PROTEIN QUANTITATIV 2.52 MG/DL (<1.0)
[2024-10-17 10:30] LABS: ALBUMIN 2.3 G/DL (3.2-5.2); ALKALINE PHOSPHATASE 50 U/L (40-129); ALT/SGPT 96 U/L (7.0-40); AST/SGOT 50 U/L (<34); BILIRUBIN,TOTAL 0.4 MG/DL (0.3-1.2); BLOOD UREA NITROGEN 21 MG/DL (9-23); CARBON DIOXIDE LEVEL 29 MMOL/L (20-31); CHLORIDE LEVEL 109 MMOL/L (98-107); CREATININE FOR GFR 0.81 MG/DL (0.70-1.30); GLOMERULAR FILTRATION RATE > 60.0 (>60); GLUCOSE, FASTING 88 MG/DL (60-100); POTASSIUM SERUM 4.5 MMOL/L (3.5-5.1); SODIUM LEVEL 143 MMOL/L (136-145); TOTAL PROTEIN 5.5 G/DL (5.7-8.2)
[2024-10-17 12:33] VITALS: BP 102/58; TEMP 98.4; O2SAT 99
[2024-10-17 14:18] VITALS: BP 112/65; TEMP 98.2; O2SAT 98
[2024-10-17 20:34] VITALS: BP 123/72; TEMP 97.9; O2SAT 99
[2024-10-18 04:00] VITALS: BP 112/61; TEMP 97.5; O2SAT 98
[2024-10-18 06:54] LABS: BASO # 0.1 10^3/uL (0.0-0.2); BASO % 1.1 % (0.0-1.0); EOS # 0.1 10^3/uL (0.0-0.5); EOS % 1.9 % (0.0-3.0); HEMATOCRIT 35.7 % (42.0-52.0); HEMOGLOBIN 11.9 g/dl (13.5-17.5); LYMPH # 1.6 10^3/uL (1.5-5.0); LYMPH % 34.3 % (24.0-44.0); MEAN CORPUSCULAR HEMOGLOBIN 28.7 pg (27.0-33.0); MEAN CORPUSCULAR HGB CONC 33.3 g/dl (32.0-36.5); MONO # 0.3 10^3/uL (0.0-0.8); MONO % 7.2 % (2.0-8.0); NEUTROPHILS # 2.4 10^3/uL (1.5-8.5); NEUTROPHILS % 51.7 % (36.0-66.0); PLATELET COUNT, AUTOMATED 296 10^3/uL (150-450); RED BLOOD COUNT 4.15 10^6/uL (4.30-6.10); WHITE BLOOD COUNT 4.7 10^3/uL (4.0-10.0)
[2024-10-18 07:07] LABS: BLOOD UREA NITROGEN 17 MG/DL (9-23); C REACTIVE PROTEIN QUANTITATIV 1.61 MG/DL (<1.0); CALCIUM LEVEL 8.1 MG/DL (8.5-10.1); CARBON DIOXIDE LEVEL 28 MMOL/L (20-31); CHLORIDE LEVEL 107 MMOL/L (98-107); CREATININE FOR GFR 0.78 MG/DL (0.70-1.30); GLOMERULAR FILTRATION RATE > 60.0 (>60); GLUCOSE, FASTING 95 MG/DL (60-100); POTASSIUM SERUM 4.4 MMOL/L (3.5-5.1); SODIUM LEVEL 140 MMOL/L (136-145)
[2024-10-18 12:30] VITALS: BP 112/63; TEMP 97.5; O2SAT 98
[2024-10-18 20:28] VITALS: BP 110/67; TEMP 97.9; O2SAT 97
[2024-10-19 04:00] VITALS: BP 117/66; TEMP 97.5; O2SAT 97
[2024-10-19 08:00] VITALS: BP 116/74; TEMP 97.5; O2SAT 99
[2024-10-19 09:32] LABS: HEMATOCRIT 35.6 % (42.0-52.0); HEMOGLOBIN 11.9 g/dl (13.5-17.5); MEAN CORPUSCULAR HEMOGLOBIN 28.5 pg (27.0-33.0); MEAN CORPUSCULAR HGB CONC 33.4 g/dl (32.0-36.5); MEAN CORPUSCULAR VOLUME 85.4 fl (80.0-96.0); PLATELET COUNT, AUTOMATED 310 10^3/uL (150-450); RED BLOOD COUNT 4.17 10^6/uL (4.30-6.10); WHITE BLOOD COUNT 5.5 10^3/uL (4.0-10.0)
[2024-10-19 09:43] LABS: BLOOD UREA NITROGEN 17 MG/DL (9-23); C REACTIVE PROTEIN QUANTITATIV 0.94 MG/DL (<1.0); CALCIUM LEVEL 8.3 MG/DL (8.5-10.1); CARBON DIOXIDE LEVEL 31 MMOL/L (20-31); CHLORIDE LEVEL 105 MMOL/L (98-107); CREATININE FOR GFR 0.84 MG/DL (0.70-1.30); GLOMERULAR FILTRATION RATE > 60.0 (>60); GLUCOSE, FASTING 97 MG/DL (60-100); POTASSIUM SERUM 4.3 MMOL/L (3.5-5.1); SODIUM LEVEL 141 MMOL/L (136-145)
[2024-10-19 10:15] LABS: ATYPICAL LYMPH 3 % (0-5); BASOPHILS 4 % (0-1); EOSINOPHILS 1 % (0-3); LYMPHOCYTES 23 % (16-44); MONOCYTES 6 % (0-5); MYELOCYTES 2 % (0-0); NEUTROPHILS 61 % (28-66)
[2024-10-19 10:16] LABS: ANISOCYTOSIS 1+; PLATELET ESTIMATE NORMAL (NORMAL)
[2024-10-19 10:17] LABS: OVALOCYTES 1+; TEAR DROP CELLS 1+
[2024-10-19] MEDS: DOXYCYCLINE HYCLATE 100MG TABLET PO SCH (10:54)
[2024-10-19] MEDS: AUGMENTIN 875 MG TAB PO SCH (10:54)
[2024-10-19 12:00] VITALS: BP 115/73; TEMP 98.1; O2SAT 98
[2024-10-19 20:16] VITALS: BP 109/72; TEMP 98.1; O2SAT 98
[2024-10-20 04:00] VITALS: BP 108/57; TEMP 98.2; O2SAT 98
[2024-10-20 06:22] LABS: BASO # 0.1 10^3/uL (0.0-0.2); BASO % 1.1 % (0.0-1.0); EOS # 0.2 10^3/uL (0.0-0.5); EOS % 3.2 % (0.0-3.0); HEMATOCRIT 36.4 % (42.0-52.0); HEMOGLOBIN 12.3 g/dl (13.5-17.5); LYMPH # 1.9 10^3/uL (1.5-5.0); LYMPH % 28.7 % (24.0-44.0); MEAN CORPUSCULAR HGB CONC 33.8 g/dl (32.0-36.5); MEAN CORPUSCULAR VOLUME 85.8 fl (80.0-96.0); MONO # 0.5 10^3/uL (0.0-0.8); MONO % 7.4 % (2.0-8.0); NEUTROPHILS # 3.5 10^3/uL (1.5-8.5); NEUTROPHILS % 53.5 % (36.0-66.0); PLATELET COUNT, AUTOMATED 312 10^3/uL (150-450); RED BLOOD COUNT 4.24 10^6/uL (4.30-6.10); WHITE BLOOD COUNT 6.6 10^3/uL (4.0-10.0)
[2024-10-20 06:48] LABS: BLOOD UREA NITROGEN 15 MG/DL (9-23); C REACTIVE PROTEIN QUANTITATIV 0.67 MG/DL (<1.0); CALCIUM LEVEL 8.5 MG/DL (8.5-10.1); CARBON DIOXIDE LEVEL 32 MMOL/L (20-31); CHLORIDE LEVEL 105 MMOL/L (98-107); CREATININE FOR GFR 0.89 MG/DL (0.70-1.30); GLOMERULAR FILTRATION RATE > 60.0 (>60); GLUCOSE, FASTING 95 MG/DL (60-100); POTASSIUM SERUM 4.3 MMOL/L (3.5-5.1); SODIUM LEVEL 143 MMOL/L (136-145)
[2024-10-20] MEDS ORDERED: ELIQ5TAB PO (07:56)
[2024-10-20] MEDS ORDERED: ENTER DRUG NAME HERE (PATIENT'S OWN MED) PO SCH (09:00)
[2024-10-20] MEDS ORDERED: AMOX875T2 PO (10:41)
[2024-10-20] MEDS: ENOXAPARIN 150MG/ML SYRINGE SC ONE (11:15)
== END 2024-10-20 11:38 | disposition home or self-care (01) | DRG 364 ==
LOC: M ED 18:39 → M ED INP 23:15 → M MS4PR 10-14 12:40 → M MS5PR 10-17 14:12
PROVIDERS: ADMIT Family Medicine; ATTEND Student in an Organized Health Care Education/Training Program
PROC: 0KB70ZZ Excision of Right Upper Arm Muscle, Open Approach (ICD-10-PCS; principal; 2024-10-15)
DX: L02.413 Cutaneous abscess of right upper limb (principal); I82.621 Acute embolism and thrombosis of deep veins of right upper extremity; N28.1 Cyst of kidney, acquired; B19.20 Unspecified viral hepatitis C without hepatic coma; F17.210 Nicotine dependence, cigarettes, uncomplicated; F39 Unspecified mood [affective] disorder; Z79.899 Other long term (current) drug therapy; L03.113 Cellulitis of right upper limb

== ENCOUNTER 2025-09-07 02:24 | Emergency (ER) | payer MEDICAID, OTHER ==
[~2025-09-07] VITALS: Ht 188 cm; Wt 109.1 kg
[~2025-09-07 02:24] MED LIST changes: +ACET-897 PO; +AMOX875T2 PO; +ELIQ5TAB PO; +SOFO1TAB PO; +SULF-8 PO
[2025-09-07 02:26] VITALS: BP 136/95; TEMP 97.3; O2SAT 96
== END 2025-09-07 04:27 | disposition left against medical advice (07) ==
LOC: M ED 02:24
DX: Z53.21 Procedure and treatment not carried out due to patient leaving prior to being seen by health care provider (principal)